=== PATIENT | female | born 2005 | race Caucasian/White ===

== ENCOUNTER 2025-04-09 14:13 | Emergency (ER) | payer OTHER ==
[2025-04-09 14:31] VITALS: TEMP 98.3; BMI 22.0
[2025-04-09 15:47] VITALS: BP 114/57; PULSE 85; RESP 18
== END 2025-04-09 16:04 | disposition home or self-care (01) ==
LOC: JER 14:13
DX: K64.9 Unspecified hemorrhoids (principal); R10.13 Epigastric pain; K62.89 Other specified diseases of anus and rectum; R11.0 Nausea; K59.00 Constipation, unspecified; K62.5 Hemorrhage of anus and rectum
CPT/HCPCS: 99283-25